=== PATIENT | male | born 1980 ===

== ENCOUNTER 2019-04-17 11:03 | Emergency (ER) | payer SELFPAY ==
[2019-04-17 11:36] VITALS: BP 109/68
--- NOTE | 2019-04-17 12:51 | UC ---
Skin Complaint HPI - HPI Summary HPI Summary: AT 745 THIS MORNING AFTER BRUSHING HIS TEETH PATIENT NOTICED THAT HE WAS BLEEDING FROM THE MIDDLE OF HIS TONGUE. STATES THAT HE HAS NOT STOPPED OOZING BLOOD SINCE THEN. DENIES ANY TRAUMA. NO CURRENT OR PAST HISTORY OF TONGUE PIERCING. DENIES SMOKING OR ANY TOBACCO PRODUCT USE. DENIES BEING A HEAVY DRINKER. STATES THE ONLY FAMILY HISTORY OF CANCERS PROSTATE CANCER IN HIS FATHER. - History of Current Complaint Chief Complaint: UCDentalProblem Time Seen by Provider: 04/17/19 11:54 Stated Complaint: MOUTH COMPLAINT Hx Obtained From: Patient Onset/Duration: Sudden Onset, Lasting Hours, Still Present Timing: Constant Onset Severity: Mild Current Severity: Mild Pain Intensity: 0 Pain Scale Used: 0-10 Numeric Character: Raised Aggravating Factor(s): Nothing Alleviating Factor(s): Nothing Associated Signs & Symptoms: Negative: Nausea, Fever, Hoarseness, Throat Tightening, Tenderness, Joint Swelling - Allergy/Home Medications Allergies/Adverse Reactions: Allergies Allergy/AdvReac Type Severity Reaction Status Date / Time No Known Allergies Allergy Verified 04/17/19 11:35 Home Medications: Home Medications NK [No Home Medications Reported] 04/17/19 [History Confirmed 04/17/19] PMH/Surg Hx/FS Hx/Imm Hx Previously Healthy: Yes - Surgical History Surgical History: Yes Surgery Procedure, Year, and Place: Tonsilectomy - Family History Known Family History: Positive: Non-Contributory - Social History Alcohol Use: Occasionally Substance Use Type: None Smoking Status (MU): Never Smoked Tobacco Review of Systems All Other Systems Reviewed And Are Negative: Yes Constitutional: Positive: Negative ENT: Positive: Other - BLEEDING TONGUE LESION Respiratory: Positive: Negative Cardiovascular: Positive: Negative Gastrointestinal: Positive: Negative Physical Exam Triage Information Reviewed: Yes Appearance: Well-Appearing, No Pain Distress, Well-Nourished Vital Signs: Initial Vital Signs Temp 97.8 F 04/17/19 11:31 Pulse 60 04/17/19 11:31 Resp 16 04/17/19 11:31 BP 109/68 04/17/19 11:31 Pulse Ox 100 04/17/19 11:31 Vital Signs Reviewed: Yes Eyes: Positive: Conjunctiva Clear ENT: Positive: Hearing grossly normal, Pharynx normal, Other - 2.5CM X 1.5CM FIRM, PAINLESS LESION WITHIN THE LEFT SIDE OF TONGUE. 1CM OF WHITISH DISCOLORATION IN THE CENTER WITH A CENTRALLY LOCATED PUNCTUM THAT IS SLOWLY OOZING BRIGHT RED BLOOD. Neck: Positive: Supple, Nontender, No Lymphadenopathy Respiratory: Positive: No respiratory distress, No accessory muscle use Cardiovascular: Positive: Pulses Normal Abdomen Description: Positive: Soft Musculoskeletal: Positive: No Edema Neurological: Positive: Alert Psychological: Positive: Age Appropriate Behavior Skin: Negative: Rashes Course/Dx - Course Course Of Treatment: PATIENT HAS A FIRM, PAINLESS LESION ON THE LEFT SIDE OF HIS TONGUE THAT IS OOZING BLOOD. I AM CONCERNED ABOUT CANCER ALTHOUGH HE DOES NOT SEEM TO HAVE ANY OBVIOUS RISK FACTORS. NON SMOKER. NO H/O TOBACCO USE. NO PIERCINGS. NO ETOH ABUSE. ONLY FAMILY H/O CANCER IS PROSTATE CANCER IN DAD. NO LYMPHADENOPATHY. NO UNEXPLAINED WEIGHT LOSS, NIGHT SWEATS OR EASY BRUISING. I CALLED ENT IN [place] AND [place] AND BOTH OFFICES ARE CLOSED FOR LUNCH. I CALLED [facility] [place] AND [facility] WHICH ARE ALSO CLOSED. I CALLED [facility] AND WAS ADVISED THAT THEY DO NOT TAKE CARE OF TONGUE LESIONS. I CALLED ORAL SURGERY. DR. RUIZ IS IN THE OR ALL DAY AND DR. FRAZIER'S OFFICE CLOSED AT NOON TODAY. I DISCUSSED WITH THE PATIENT THE OPTION OF ATTEMPTING TO CAUTERIZE THE BLEEDING WITH SILVER NITRATE AND WAITING UNTIL THE ENT OFFICES REOPEN AFTER LUNCH AT WHICH TIME I COULD CALL TO TRY TO GET HIM TO BE SEEN TODAY. PATIENT DOES NOT HAVE INSURANCE AND IS CONCERNED ABOUT COST. HE OPTS TO WAIT AND SEE IF THE BLEEDING WILL STOP ON ITS OWN AND WILL CALL ENT LATER TODAY TO SCHEDULE FOLLOW-UP APPOINTMENT. I STRESSED TO HIM THE IMPORTANCE OF HAVING THIS LESION EVALUATED. I AGAIN OFFERED TO THE PATIENT THE OPTION OF WAITING HERE IN THE URGENT CARE UNTIL THE ENT OFFICES REOPEN. PATIENT DECLINES STATING HE WOULD RATHER CALL ON HIS OWN LATER. - Diagnoses Provider Diagnosis: Tongue lesion Discharge ED - Sign-Out/Discharge Documenting (check all that apply): Patient Departure All imaging exams completed and their final reports reviewed: No Studies - Discharge Plan Condition: Stable Disposition: HOME Referrals: [facility] [Outside] - If Needed Additional Instructions: YOU HAVE A PAINLESS BLEEDING LESION IN YOUR TONGUE. THIS WARRANTS FURTHER EVALUATION. CALL ENT TODAY TO SCHEDULE AN APPOINTMENT HENNA. I'VE ALSO PROVIDED YOU WITH CONTACT INFORMATION FOR THE LOCAL DERMATOLOGISTS AND ORAL SURGEONS IF NEEDED. GO TO THE ER WITHOUT FAIL IF YOUR BLEEDING PERSISTS OR WORSENS OR IF YOU DEVELOP FEVER, PAIN, CONTINUED SWELLING OR ANY OTHER CONCERNING SYMPTOMS. [facility] [place] BLESSING [place] AND [place] [facility] [phone] ENT IN [place] ([place] OFFICE HOURS ON TUESDAYS) DR. NOELLE OLSON Address: [address] [place] [phone] [facility] (Tuesdays) Phone [place]: Phone [place]: ORAL SURGERY: [facility] Magdiel Purdy [address] [place] [address] [facility] Gilbert Frazier Jr., D.D.S. [address], [address] [place] [address] [place] [facility] Herbie Cordon, DDS [address] [facility], [place] [address] DERMATOLOGY IN [place]: DR. RIP ELIAS (DOES NOT SEE PTS ON MONDAYS OR TUESDAYS) [facility], [facility] [address]; [address] [place] [address] Dr. Ame Carlson Address: [facility] [address] [place] [address] DR. SALINAS HERNÁNDEZ, DR. AGA [facility] [address] [facility] [address], [place] [address] - Billing Disposition and Condition Condition: STABLE Disposition: Home
== END 2019-04-17 12:48 | disposition home or self-care (01) ==
LOC: UCEAST 11:03
DX: K13.70 Unspecified lesions of oral mucosa (principal)
CPT/HCPCS: 99211; G0463